=== PATIENT | female | born 1970 | race Caucasian/White ===

== ENCOUNTER 2016-11-24 17:49 | Emergency (ER) | payer SELFPAY ==
--- NOTE | 2016-11-28 13:12 | ER ---
ADMIT: 11/24/2016 RM/LOC: ER [facility] MR#: [id number] [address] [facility] [address] [place] [id number] EBONI PELAEZ [address] [place] [address] Emergency Room Report SEX: F AGE: 46 : 1970 DATE: 11/24/2016 ADDENDUM: This patient comes into the ER because she states she is having pain and drainage from her right eye 3 days ago. She was putting insulation, and she thinks she may have gotten something in her eye. On physical exam, she has green purulent drainage coming from her eye and it is mattered shut. I did stain the eye with fluorescein, and there were no corneal abrasions and I found no foreign bodies in her eye. The patient also has chronic back pain, and she says she ran out of her pain medicine and she rates the pain in the back as a 10/10. I did put erythromycin ointment in her eye. She states she is current on her tetanus shot. She requested a refill for her pain medicine, which I did not do; however, I did give her 2 [place] 5 mg in the emergency room, and she is to call her primary doctor tomorrow for a refill of her pain medication. Please see my T-sheet. DIAGNOSES: 1. Conjunctivitis of the right eye. 2. Chronic back pain. ROSALBA Martinez / Wilberto Mosher MD / chaka JOB #: [id number] CC: Beny Maciel MD, Attending Physician Feroz Rodriguez MD, Family Physician
== END 2016-11-24 19:04 | disposition home or self-care (01) ==
LOC: ER 17:49
DX: H10.9 Unspecified conjunctivitis (principal); M54.9 Dorsalgia, unspecified; G89.29 Other chronic pain; Z88.5 Allergy status to narcotic agent; Z88.8 Allergy status to other drugs, medicaments and biological substances